=== PATIENT | female | born 1945 | race Caucasian/White ===

== ENCOUNTER → 2016-04-24 | Outpatient (CLI) | payer BC ==
[~2016-04-24] MED LIST: ATEN-173 PO; ATOR-22 PO; BND25X PO; CLC100 PO; FAMO40TA6 PO; MULT-506 PO; VALS160T60 PO
--- NOTE | 2016-04-24 16:37 | MAMMOGRAPHY REPORT ---
BILATERAL DIGITAL SCREENING MAMMOGRAM WITH CAD: 04/24/2016 CLINICAL HISTORY: Routine screening examination. TECHNIQUE: Bilateral CC and MLO views were obtained. Current study was also evaluated with a Compu ter Aided Detection (CAD) system. COMPARISON: Comparison is made to exams dated: 04/21/2015 mammogram, 04/20/2014 mammogram, 04/17/2013 dov mogram, 04/16/2012 mammogram, 03/22/2011 mammogram, and 03/01/2010 mammogram - [facility] nter. BREAST COMPOSITION: The tissue of both breasts is heterogeneously dense, which may obscure small ma sses. FINDINGS: There is a 10 mm asymmetry in the medial, middle one third of the left breast on the CC v iew. It is unclear if this projects superiorly or inferiorly based on the MLO view. Further evalua tion with spot compression tomosynthesis views and possibly ultrasound are recommended. There is a stable circumscribed 5.5 mm mass in the medial posterior left breast that is unchanged ma mmographically dating back to at least 2007, therefore likely benign. There are benign rim calcific ations and scattered bilateral punctate benign-appearing microcalcifications, also stable. No other suspicious mass, architectural distortion or cluster of suspicious microcalcifications is seen. IMPRESSION: ACR BI-RADS CATEGORY 0: INCOMPLETE EVALUATION: NEED ADDITIONAL IMAGING EVALUATION The 10 mm asymmetry in the medial left breast needs additional evaluation. The patient will be called to schedule an appointment. Approximately 10% of breast cancers are not detected with mammography. A negative mammographic repor t should not delay biopsy if a clinically suggestive mass is present. Lori Fuller M.D. ay/:04/24/2016 14:54:24 Casting Molder: Radha JONES)(Yovany), [facility] letter sent: Addl Imaging 0 BI-RADS Code: ACR BI-RADS Category 0: Incomplete Evaluation: Need Additional Imaging Evaluation
== END | disposition home or self-care (01) ==
LOC: C.MAMM 08:39
PROVIDERS: ATTEND Obstetrics & Gynecology
DX: Z12.31 Encounter for screening mammogram for malignant neoplasm of breast (principal); N64.9 Disorder of breast, unspecified

== ENCOUNTER → 2016-05-04 | Outpatient (CLI) | payer BC ==
--- NOTE | 2016-05-04 12:44 | MAMMOGRAPHY REPORT ---
UNILATERAL LEFT DIGITAL DIAGNOSTIC MAMMOGRAM TOMOSYNTHESIS AND TARGETED LEFT ULTRASOUND: 05/04/2016 CLINICAL HISTORY: Callback from screening mammogram for left breast asymmetry. TECHNIQUE: Breast tomosynthesis in addition to standard 2D mammography was performed. Spot jeanne mino left CC and MLO 2-D and tomosynthesis views were obtained. COMPARISON: Comparison is made to exams dated: 04/24/2016 mammogram, 04/21/2015 mammogram, 04/20/2014 ma mmogram, 04/16/2012 mammogram, 04/17/2013 mammogram, and 03/22/2011 mammogram - [facility]. BREAST COMPOSITION: The tissue of the left breast is heterogeneously dense, which may obscure small masses. FINDINGS: The previously described asymmetry seen within the left medial breast on the cc view only effaces to a baseline appearance on the additional views, with appearance of this region similar to prior exams including the 2009 exam. No discrete mammographic mass or other suspicious finding is seen in this region on the tomosynthesis images. Targeted ultrasound was performed of the area of the mammographic asymmetry in the left medial breas t. No suspicious masses or other suspicious sonographic abnormalities are evident, with no sonograp hic correlate for the mammographic asymmetry seen. Incidentally noted during the exam were a few be nign simple cysts, including a 6 x 4 mm simple cyst in the left breast at 7:00, 5 cm from the nipple , as well as a 3 x 2 mm simple cyst in the left breast at 8:00, 2 cm from the nipple. IMPRESSION: ACR BI-RADS CATEGORY 2: BENIGN, TARGETED ULTRASOUND ACR BI-RADS CATEGORY 2: BENIGN The left breast asymmetry effaces on the additional views, without corresponding sonographic abnorma lity evident. The asymmetry is benign and compatible with normal overlapping fibroglandular tissue. There is no mammographic or targeted sonographic evidence of malignancy. A 1 year screening mammogra m is recommended. The patient has been verbally notified of the results. Approximately 10% of breast cancers are not detected with mammography. A negative mammographic repor t should not delay biopsy if a clinically suggestive mass is present. Nicole Hernandez M.D. /:05/04/2016 10:53:39 Fig Caprifier: Radha JNOES)(M), [facility] letter sent: Normal 04/16 BI-RADS Code: ACR BI-RADS Category 2: Benign Ultrasound BI-RADS: ACR BI-RADS Category 2: Benign
== END | disposition home or self-care (01) ==
LOC: C.MAMM 09:36
PROVIDERS: ATTEND Obstetrics & Gynecology
DX: N64.9 Disorder of breast, unspecified (principal)

== ENCOUNTER → 2016-07-31 | Outpatient (CLI) | payer BC ==
[~2016-07-31] MED LIST changes: -BND25X PO; +DIPH25CA50 PO
== END | disposition home or self-care (01) ==
LOC: C.LABSPEC 13:28
PROVIDERS: ATTEND Physician Assistant
DX: N90.7 Vulvar cyst (principal)

== ENCOUNTER → 2016-11-09 | Outpatient (CLI) | payer BC ==
[~2016-11-09] MED LIST changes: +BND25X PO; -DIPH25CA50 PO
[2016-11-09 11:15] LABS: ALT/SGPT 43 U/L (12-78); BLOOD UREA NITROGEN 14 mg/dl (7-18); BUN/CREATININE RATIO 18.7 (10-20); CALCIUM 9.1 mg/dl (8.5-10.1); CARBON DIOXIDE 31 mmol/L (21-32); CHLORIDE 106 mmol/L (98-107); CHOLESTEROL 163 mg/dl (0-200); CREATININE 0.75 mg/dl (0.60-1.20); GLUCOSE 107 mg/dl (70-99); POTASSIUM 4.4 mmol/L (3.5-5.1); SODIUM 143 mmol/L (136-145); TRIGLYCERIDES 165 mg/dl (0-150); VERY LOW DENSITY LIPOPROT CALC 33 mg/dl
[2016-11-09 11:24] LABS: ALKALINE PHOSPHATASE 70 U/L (45-117); AST/SGOT 23 U/L (15-37); CHOLESTEROL/HDL RATIO 3.3; HDL CHOLESTEROL 50 mg/dl; LDL CHOLESTEROL CALCULATED 80 mg/dl
[2016-11-09 12:59] LABS: ESTIMATED AVERAGE GLUCOSE 120 mg/dl; HA1C FLAG Normal (Normal)
== END | disposition home or self-care (01) ==
LOC: C.LABBC 07:36
PROVIDERS: ATTEND Internal Medicine Geriatric Medicine
DX: I10 Essential (primary) hypertension (principal); E78.5 Hyperlipidemia, unspecified; N13.30 Unspecified hydronephrosis; R73.9 Hyperglycemia, unspecified

== ENCOUNTER → 2017-04-26 | Outpatient (CLI) | payer BC ==
[~2017-04-26] MED LIST changes: -BND25X PO; +DIPH25CA50 PO
--- NOTE | 2017-04-29 14:47 | MAMMOGRAPHY REPORT ---
BILATERAL DIGITAL SCREENING MAMMOGRAM TOMOSYNTHESIS WITH CAD: 04/26/2017 CLINICAL HISTORY: Routine screening. TECHNIQUE: Breast tomosynthesis in addition to standard 2D mammography was performed. Current study was also evaluated with a Computer Aided Detection (CAD) system. COMPARISON: Comparison is made to exams dated: 05/04/2016 mammogram, 04/24/2016 mammogram, 04/21/2015 ma mmogram, 04/20/2014 mammogram, 04/17/2013 mammogram, and 04/16/2012 mammogram - [facility] BREAST COMPOSITION: The tissue of both breasts is heterogeneously dense, which may obscure small mas ses. FINDINGS: No suspicious masses, calcifications, or areas of architectural distortion are noted in ei ther breast. There has been no significant interval change compared to prior exams. Bilateral benign -appearing masses/asymmetries and scattered bilateral benign-appearing calcifications are not signifi cantly changed. IMPRESSION: ACR BI-RADS CATEGORY 2: BENIGN There is no mammographic evidence of malignancy. A 1 year screening mammogram is recommended. The pa tient will receive written notification of the results. Approximately 10% of breast cancers are not detected with mammography. A negative mammographic report should not delay biopsy if a clinically suggestive mass is present. Nicole Hernandez M.D. ah/:04/26/2017 14:55:06 Cryptoanalysis Teacher: Urbano JONES)(M), [facility] letter sent: Normal 1/2 BI-RADS Code: ACR BI-RADS Category 2: Benign
== END | disposition home or self-care (01) ==
LOC: C.MAMM 08:37
PROVIDERS: ATTEND Obstetrics & Gynecology
DX: Z12.31 Encounter for screening mammogram for malignant neoplasm of breast (principal)

== ENCOUNTER → 2017-07-04 | Outpatient (CLI) | payer BC ==
--- NOTE | 2017-07-04 09:35 | DIAGNOSTIC IMAGING REPORT ---
CHEST 2 VIEWS ROUTINE CLINICAL HISTORY: R05 [id number] COMPARISON STUDY: 09/08/2014 FINDINGS: The heart is borderline enlarged. There is an air-containing retrocardiac opacity consistent with a hiatal hernia. There is no failure. There is no focal pulmonary consolidation. There are no pleural effusions.[ IMPRESSION: Hiatal hernia. No active disease in the chest. Electronically signed by: Pérez Alegria M.D. 07/04/2017 9:33 AM Dictated Date/Time: 07/04/2017 9:33 AM
== END | disposition home or self-care (01) ==
LOC: C.RADBC 09:16
PROVIDERS: ATTEND Internal Medicine Geriatric Medicine
DX: R05 Cough (principal); K44.9 Diaphragmatic hernia without obstruction or gangrene

== ENCOUNTER 2023-11-04 05:01 | Observation (INO) ==
--- NOTE | 2023-07-11 10:54 | PAT Medication Instructions ---
Medication Instructions Date of Service July 11, 2023 Home Medications multivitamin 1 tab PO QAM omega-3 fatty acids-fish oil 360 mg-1,200 mg capsule (Fish Oil) 1 cap PO QDL meloxicam 7.5 mg tablet 7.5 mg PO 5XWK escitalopram oxalate 20 mg tablet (Lexapro) 20 mg PO QAM valsartan 320 mg-hydrochlorothiazide 25 mg tablet 1 tab PO QAM famotidine 40 mg tablet (Pepcid) 40 mg PO BID atorvastatin 20 mg tablet 20 mg PO QPM diphenhydramine HCl 25 mg tablet (Benadryl Allergy) 12.5 - 25 mg PO HS PRN dihydroxyaluminum sodium carb 334 mg chewable tablet 334 mg PO HS PRN melatonin 5 mg tablet 5 mg PO HS PRN peg 400-propylene glycol (PF) 0.4 %-0.3 % eye drops in a dropperette (Systane (PF)) 1 drp ophthalmic (eye) BID PRN ASK your surgeon for instructions meloxicam 7.5 mg tablet 7.5 mg PO 5XWK STOP taking 2 weeks before surgery (or as soon as possible if surgery is within 2 weeks) omega-3 fatty acids-fish oil 360 mg-1,200 mg capsule (Fish Oil) 1 cap PO QDL DO NOT take the morning of surgery multivitamin 1 tab PO QAM valsartan 320 mg-hydrochlorothiazide 25 mg tablet 1 tab PO QAM Take morning of surgery With a small sip of water, OTHERWISE NOTHING TO EAT OR DRINK AFTER MIDNIGHT: escitalopram oxalate 20 mg tablet (Lexapro) 20 mg PO QAM famotidine 40 mg tablet (Pepcid) 40 mg PO BID peg 400-propylene glycol (PF) 0.4 %-0.3 % eye drops in a dropperette (Systane (PF)) 1 drp ophthalmic (eye) BID PRN(if needed) Take evening before surgery famotidine 40 mg tablet (Pepcid) 40 mg PO BID atorvastatin 20 mg tablet 20 mg PO QPM diphenhydramine HCl 25 mg tablet (Benadryl Allergy) 12.5 - 25 mg PO HS PRN(if needed) dihydroxyaluminum sodium carb 334 mg chewable tablet 334 mg PO HS PRN(if needed) melatonin 5 mg tablet 5 mg PO HS PRN(if needed) peg 400-propylene glycol (PF) 0.4 %-0.3 % eye drops in a dropperette (Systane (PF)) 1 drp ophthalmic (eye) BID PRN(if needed) Other Notes If you have any questions please call us at [phone] or [phone] or [phone] or [phone]
--- NOTE | 2023-07-15 11:04 | Anesthesiology Consultation ---
Date of Service July 15, 2023 Assessment & Plan (1) Encounter for pre-operative examination: Chart Review Chart Review: Patient seen in Pre Admission Testing - Infectious disease screening: Per assessment on 07/15/23: No known infectious disease contacts or current infectious disease symptoms. No noted recent Covid positive test result. - Abnormal stress test (05/2023): Per report, "mild fixed distal lateral MPI defect. There is an additional mild to moderate reversible MPI defect involving the distal inferior, distal inferoseptal, and apical myocardium. These findings suggest small infarct and moderate myocardial ischemia. Alternatively, the reversible defect may represent the patient's known large hiatal hernia with stomach herniated into the intrathoracic space as identified on CT scan.. Unclear if abnormal findings represent myocardial ischemia or large sliding hiatal hernia. Would consider definitive evaluation by coronary angiography." Cardiology visit (07/12/23): "Orthopedic surgery is considered intermediate cardiovascular risk. The patient does not have anginal type symptoms. Her chest pain is persistent and does not change with exertion. She also has a large hiatal hernia based on imaging. Most likely the abnormality on stress testing is secondary to the hiatal hernia. However, we cannot exclude myocardial ischemia particularly given her risk factors. Therefore I have recommended that she undergo coronary angiography for definitive evaluation plus or minus PCI as indicated. If she does require PCI this will delay her orthopedic surgery. Further recommendations pending results of cardiac catheterization" - Per cardiology workload message 07/22/23, "insurance wants her to have a Coronary CTA done before they will approve the Cath." > Insurance recommendations reviewed by cardio. Plan to schedule Coronary CTA- Awaiting results + final cardiology preop recommendations ([facility]). Teaching & Discussion Pre-Anesthesia Teaching/Discussion Notes: Instructed NPO after midnight before surgery,except medications with 15 cc of water. Medication instructions provided according to the PAT guidelines. History Surgery Operation Date: 08/01/23 07:15 Proposed Procedures p Right Hip Endoscopic Bursectomy, - Alok Handley MD s Open Gluteus Medius Repair - Alok Handley MD Height/Weight Height: 5 ft 5 in Weight: 73.8 kg Allergies Allergy/AdvReac Type Severity Reaction Status Date / Time Bactrim Allergy Unknown UNKNOWN Verified 04/29/23 07:51 pollen extracts Allergy Unknown Seasonal Verified 07/17/23 09:28 allergy sulfamethoxazole AdvReac Intermediate Nausea Verified 07/12/23 15:26 trimethoprim AdvReac Unknown Nausea Verified 07/12/23 15:26 Medications Home Medications Medication Instructions Recorded Confirmed Last Taken multivitamin 1 tab PO QAM 12/04/18 07/12/23 Unknown omega-3 fatty acids-fish oil 360 1 cap PO QDL 12/09/18 07/12/23 Unknown mg-1,200 mg capsule (Fish Oil) meloxicam 7.5 mg tablet 7.5 mg PO 5XWK 08/27/19 07/12/23 Unknown escitalopram oxalate 20 mg tablet 20 mg PO QAM 09/13/20 07/12/23 Unknown (Lexapro) valsartan 320 1 tab PO QAM 09/13/20 07/12/23 Unknown mg-hydrochlorothiazide 25 mg tablet atorvastatin 20 mg tablet 20 mg PO QPM 04/29/23 07/12/23 04/28/23 diphenhydramine HCl 25 mg tablet 12.5 - 25 mg PO HS PRN Sleep 04/29/23 07/12/23 Unknown (Benadryl Allergy) melatonin 5 mg tablet 5 mg PO HS PRN Sleep 07/02/23 07/12/23 Unknown peg 400-propylene glycol (PF) 0.4 1 drp ophthalmic (eye) BID PRN Dry 07/02/23 07/12/23 Unknown %-0.3 % eye drops in a dropperette Eye(S) (Systane (PF)) calcium carbonate 750 mg PO DAILY PRN 07/12/23 07/12/23 Unknown omeprazole 40 mg capsule,delayed 40 mg PO DAILY 07/12/23 07/12/23 Unknown release omeprazole 40 mg capsule,delayed 40 mg PO DAILY 07/15/23 07/15/23 Unknown release Past Medical History Medical History Anxiety GERD (gastroesophageal reflux disease) Hiatal hernia Large History of endometriosis HLD (hyperlipidemia) HTN (hypertension) Mitral valve prolapse Osteoarthritis Paroxysmal atrial tachycardia Exercise / Class Metabolic Activity II 4-5 Yardwork/Stairs/Walk up hill (one FS: No CP, no SOB) Past Family History Family History Father Coronary heart disease Heart disease Brother Diabetes Hypertension Mother Diabetes Hypertension Dyslipidemia Denies family history of Ovarian cancer Breast cancer Colorectal cancer Past Surgical History Surgical History H/O colonoscopy H/O foot surgery Right H/O LEEP H/O oral surgery History of arthroscopy of left knee History of bladder repair surgery History of colonoscopy History of esophagogastroduodenoscopy (EGD) History of tonsillectomy and adenoidectomy History of total abdominal hysterectomy and bilateral salpingo-oophorectomy History of ureter repair S/P rotator cuff repair Right Past Anesthesia History No Hx of Anesthesia Complications and No Family Hx of Anesthesia Complications History of PONV No Hx of PONV and No Hx of Motion Sickness Social History Smoking Status: Never smoker Do You Dip or Chew Tobacco: No Hx Alcohol Use: Yes alcohol intake frequency: a few times a week Hx Substance Use: No substance use type: does not use Review of Systems Patient denies shortness of breath, dyspnea on exertion, fever, chills, cough, wheezing, palpitations. Physical Exam Vital Signs BP 111/69 P 71 TEMP 97.8 SP02 97%RA RESP 18 Physical Full cervical extension range of motion. Full TMJ range of motion. TMD 4 finger breaths Mallampati Score 3 Dentition: intact, + crowns, upper right front root canal + implant Lungs: clear throughout to auscultation Cardiac: regular rate and rhythm, no murmurs noted Spine: normal Carotid arteries: negative bruit Extremities: no LE edema Lab Results Anesthesia Preop Results Results Anesthesia Widget: WBC 9.28 K/ul (4.8-10.8) 07/15/23 Hgb 13.9 g/dl (12.0-16.0) 07/15/23 Hct 40.4 % (37.0-47.0) 07/15/23 Plt 262 K/uL (130-400) 07/15/23 Testing Laboratory Results 06/15/23 SODIUM 141 POTASSIUM 3.9 CHLORIDE 109 CO2 30 BUN 16 CREATININE 0.66 GLUCOSE 118 HGBA1C 5.7% Electrocardiogram Date: 04/01/23 Normal sinus rhythm at 79 bpm. Inferior infarct, age undetermined. Possible anterior lateral infarct (poor R wave progression; consider prior anterior lateral NM, LVH, lead placement) *Subsequent Echo/stress test* Echocardiogram Date: 05/02/23 EF 55-60%. No regional wall motion abnormality. Mild concentric LVH. Grade 1 diastolic dysfunction.Mild RAD. Mild TR.Possible descending aortic enlargement/aneurysm. Cannot exclude aortic dissection. Consider definitive evaluation by chest CTA. Mild LVH with grade 1 diastolic dysfunction. Possible aortic pathology but study is very limited. Recommend chest CTA. Chest CTA Date: 06/07/23 1. Normal caliber thoracic aorta. No thoracic aortic dissection. Mild atherosclerotic plaque within the thoracic aorta. 2. No acute intrathoracic findings. 3. Large hiatal hernia with partially intrathoracic stomach. Stress Test Date: 06/07/23 Type: nuclear Baseline EKG demonstrated normal sinus rhythm and late R wave progression. There were no diagnostic ST segment or T wave changes with Lexiscan infusion. No Lexiscan induced arrhythmias. Gated myocardial perfusion imaging demonstrates normal size LV with calculated EF of 80%. There is normal wall motion. There is a mild fixed distal lateral MPI defect. There is an additional mild to moderate reversible MPI defect involving the distal inferior, distal inferoseptal, and apical myocardium. These findings suggest small infarct and moderate myocardial ischemia. Alternatively, the reversible defect may represent the patient's known large hiatal hernia with stomach herniated into the intrathoracic space as identified on CT scan. Study is severely abnormal. Unclear if abnormal findings represent myocardial ischemia or large sliding hiatal hernia. Would consider definitive evaluation by coronary angiography. No prior studies for comparison. 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 Rare PVCs. No pairs, grouped beating, or NSVT. Max HR 109 bpm. Minimum HR 54 bpm. No pauses greater than 2 seconds or high- grade AV block. Patient reported 4 episodes of chest pain, palpitations and pounding in the chestall of these correlated to normal sinus rhythm.
--- OUTSIDE RECORDS SUMMARY | 2023-11-04 05:06 | External Medical Summary | Continuity of Care Document ---
Author Name Unknown Organization [address] Address [address] [place] [id number] Care Team Providers Care Merchandise Pickup/Receiving Associate Name Role Phone Kasey Meyer Primary Care Physician [phone] [facility]counter [id number] Date(s): 10/21/23 - 10/21/[address] [facility] [address] [facility], [address] [place] [address] [place] [phone] Encounter Diagnosis Pneumonia(Discharge Diagnosis) - 10/21/23 Pre-op exam(Discharge Diagnosis) - 10/21/23 Discharge Disposition: Home or Self Care Attending Physician: REBECCA Traylor Katy Marie Referring Physician: REBECCA Meyer Shari A Allergies, Adverse Reactions, Alerts Substance Criticality Severity Reaction Reaction Severity Status Bactrim "very queasy" Active Allergy Not found in Search 1 hayfever, sinus drainage, sneezing Active 1Hay fever Assessment and Plan Extracted from: Title:Office Visit Note Author:REBECCA Traylor Kat y Marie Date:10/21/23 1.Pneumonia Problem isAcute Goal:resolution/resolved Data:_ Plan:completing antibiotics now. LS are clear and cough has subsided. 2.Pre-op exam Plan: There are no major contraindications to surgery. Though we did discuss that given a recent pneumonia she could be at higher risk. Encouraged deep breathing exercises and increasing activity over the next 2 weeks. ARISCAT risk = 20 which is low pulmonary risk. She had an appt with cardiology to eval her cardiac risk. Patient verbalizes understanding and agrees with reggie well asreturn precautions. Immunizations Given and Recorded Vaccine Date Status Refusal Reason SARS-CoV-2 (COVID-19) mRNA-vacc - [id number] 09/10/23 Recorded SARS-CoV-2 (COVID-19) mRNA-vacc - [id number] 04/17/23 Recorded SARS-CoV-2 mRNA (Pfizer 12+) bivalent 01/01/22 Rec orded SARS-CoV-2 (COVID-19) mRNA-1273 vaccine 1 08/02/21 Recorded SARS-CoV-2 (COVID-19) mRNA-1273 vaccine 2 03/01/21 Recorded SARS-CoV-2 (COVID-19) mRNA-1273 vaccine 3 06/10/20 Recorded SARS-CoV-2 (COVID-19) mRNA-1273 vaccine 4 05/13/20 Recorded tetanus/diphtheria/pertuss, acel (Tdap) 02/24/21 G iven tetanus/diphtheria/pertuss, acel (Tdap) 03/26/11 R ecorded influenza virus vaccine, inactivated 12/30/20 Hugh rded influenza virus vaccine, inactivated 01/04/20 Give n pneumococcal 23-valent vaccine 12/16/19 Given zoster vaccine, inactivated 03/16/18 Recorded zoster vaccine, inactivated 5 01/17/18 Recorded zoster vaccine, inactivated 01/14/18 Recorded influenza virus vaccine, H1N1 12/24/17 Recorded pneumococcal 13-valent vaccine 6 04/21/15 Recorded pneumococcal 13-valent vaccine 10/06/13 Recorded zoster vaccine live 7 10/06/13 Recorded 1Result Comment: 2021-10-12: Historical information-source unspecified 2Result Comment: 2021-10-12: Historical information-source unspecified 3Result Comment: 2020-08-11: Historical information-source unspecified 4Result Comment: 2020-08-11: Historical information-source unspecified 5Result Comment: 2020-08-11: Historical information-source unspecified 6Result Comment: 2020-08-11: Historical information-source unspecified 7Result Comment: [07/17/2018 Uncharted] wrong date Medications Albuterol (Eqv-ProAir HFA) 90 mcg/inh inhalation aerosol Start: 10/14/23 11:50:00 AM EDT, 2 puff, inhaled, q6h, Disp# 6.7 g, Pharmacy: [facility]/pharmacy #[id number] Start Date: 10/14/23 Status: Ordered atorvastatin 20 mg oral tablet Start: 05/06/23 1:30:00 PM EST, 1 tab, PO, qhs, Disp# 90 tab, Refills: 2, Pharmacy: [facility] [id number] Start Date: 05/06/23 Status: Ordered Augmentin 875 mg-125 mg oral tablet Start: 10/14/23 11:49:00 AM EDT, amoxicillin 1 tab, PO, q12h, Disp# 20, [id number] Start Date: 10/14/23 Stop Date: 10/24/23 Status: Ordered diphenhydrAMINE Start: 08/10/19 8:38:00 AM EDT, 1 mg = Start Date: 08/10/19 Status: Ordered escitalopram 20 mg oral tablet Start: 04/25/23 3:57:00 PM EST, 1 tab, PO, Daily, Disp# 90 tab, Refills: 3, Pharmacy: [facility] #[id number] Start Date: 04/25/23 Status: Ordered famotidine 40 mg oral tablet Start: 09/14/22 9:16:00 AM EDT, See Instructions, Disp# 180 tab, Refills: 3, TAKE 1 TABLET BY MOUTH TWICE A DAY, Pharmacy: [facility] [id number] Start Date: 09/14/22 Status: Ordered Fish Oil oral capsule Start: 12/20/16 8:03:00 AM EDT, 2-1200mg daily Start Date: 12/20/16 Status: Ordered hydrochlorothiazide-valsartan 25 mg-320 mg oral tablet Start: 05/07/23 11:58:00 AM EST, 1 tab, PO, Daily, Disp# 90 tab, Refills: 2, Pharmacy: [facility] [id number] Start Date: 05/07/23 Status: Ordered inhaler spacer Start: 10/14/23 3:13:00 PM EDT, See Instructions, Disp# 1 each, Refills: 0, for inhaler, Pharmacy: [facility]/pharmacy #[id number] Start Date: 10/14/23 Status: Ordered melatonin Start: 08/10/19 8:36:00 AM EDT, 3 mg =, PO, qhs Start Date: 08/10/19 Status: Ordered meloxicam 7.5 mg oral tablet Start: 09/14/22 9:16:00 AM EDT, See Instructions, Disp# 180 tab, Refills: 0, TAKE 1 TABLET BY MOUTH BEFORE BREAKFAST AND 1 TABLET BEFORE LAST MEAL OF THE DAY, Pharmacy: [facility] [id number] Start Date: 09/14/22 Status: Ordered Multiple Vitamins oral tablet Start: 10/03/10 3:21:00 PM EDT, 1 tab, PO, Daily Start Date: 10/03/10 Status: Ordered sodium fluoride 5% topical varnish Start: 04/18/18 8:46:00 AM EST Start Date: 04/18/18 Status: Ordered Systane Complete Optimal Dry Eye Relief Start: 12/11/22 10:29:00 AM EDT Start Date: 12/11/22 Status: Ordered Tums Start: 10/14/23 11:33:00 AM EDT Start Date: 10/14/23 Status: Ordered Mental Status 10/21/23 Barriers to Learning one year None evide nt Mandatory Health Literacy Documentation Yes Health Literacy Communication Barriers N ever Primary Language Khmer Problem List Condition Confirmation Course Effective Dates Status H ealth Status Informant ACTINIC KERATOSIS Confirmed Active Arthritis Confirmed Active Multiple nevi Confirmed Active Brachioradial pruritus Confirmed Active Blackhead Confirmed Active Elevated cholesterol Confirmed Active Hamstring injury Confirmed Active History of actinic keratoses Confirmed Active Hypertension Confirmed Active Inflamed seborrheic keratosis Confirmed Active Lip lesion Confirmed Active Milia Confirmed Active 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 Confirmed Active Knee osteoarthritis Confirmed Active Leg pain Confirmed Active Patellofemoral syndrome Confirmed Active Well adult exam Confirmed Active Reflux Confirmed Active Seborrhea Confirmed Active Seborrheic keratosis Confirmed Active Seborrheic keratoses Confirmed Active Common wart Confirmed Active Diagnosis Diagnosis Type Effective Dates Health Status Clini na Service Informant Pneumonia Discharge Diagnosis 10/21/23 Non-Specified Pre-op exam Discharge Diagnosis 10/21/23 Non-Specified Procedures Procedure Date Related Diagnosis Body Site Status Mammogram 1 04/30/19 Completed Colonoscopy 2 04/01/19 Completed DEXA (dual energy X-ray phot on absorptiometry) scan of lateral spine 3 07/24/18 Completed Mammogram 4 04/29/18 Completed Fistula 5 08/02/17 Completed Ureter reconstruction 6 09/2014 C ompleted Arthroscopy Completed Hysterectomy Completed greenwood's neuroma removal Completed Procedure 7 Completed Rotator cuff repair Compl eted Tonsillectomy Completed 1IMPRESSION: ACR BI-RADS CATEGORY 1: NEGATIVE There is no mammographic evidence of malignancy. A one year screening is recommended. 2One 7mm polyp at the splenic flexure, removed with a hot snare. Resected and retrieved. One 6mm polyp in the proximal transverse colon, removed with a cold snare. Resected and retrieved. Await pathology results 3Femur Neck Left is 0.870 with a T-score of -1.2 Femur Neck Right is 1.035 with a T-score of 0.0 Femur Total Mean is 0.987 with a T-score of -0.2 Forearm Radius 33% is 0.701 with a T-score of -0.2 Z-score of 0.5, this patient's BMD is considered within normal limits relative to their age. Even so, they may be considered osteopenic or osteoporotic, which is normal for this age. 4wnl 5rectal 6right 7blocked duct in mouth Vital Signs Most recent to oldest [Reference Range]: 1 Temperature [36.5-37.9 DegC] 36.7 DegC (10/21/23 4:25 PM) Blood Pressure 120/60mmHg (10/21/23 4:25 PM) Cuff Pulse Pressure 60 mmHg (10/21/23 4:25 PM) Social History Social History Type Response Smoking Status Never smoked cigaret genaro Sex Female FCM Outpt Note * REBECCA Traylor, Sarah Herrera: PERFORM Event Display: FCM Outpt Note Authored Date: Chief Complaint Pt is here for 1 week f/u after pnuemonia. States feeling much better History of Present Illness Had PNA last week. Now feeling much better. Having surgery in 2 weeks. I have been consulted by Dr. Handley to evaluate this patient for a pre-operative exam. The procedure muscle repairis schedule for November 04. We discussed the risks and benefits of surgery, patient has voiced understanding. After careful consideration and examination there are no major contraindications for surgery and this patient is understanding of the risks associated with surgery. [facility] Cardiovascular Risk Factors: - Evaluated by Dr. Keith on 10/14 Blood Thinners: none Prior Anesthesia Reactions: none Alcohol use: socially 1-2/week Tobacco use: no Substance use: no Review of Systems A total of 10 systems were reviewed. Pertinent positive and negatives addressed in HPI, all other findings are negative. Physical Exam Vitals & Measurements T:36.7C BP:120/60 SpO2:96% PHQ2 Data(Data Documented on:10/21/2023 16:24) Emotional health assessment NEGATIVE Constitutional: Alert and oriented, No acute distress, Well-appearing, Normal mood and affect Respiratory: Lung sounds are clear, equal chest rise and fall with breathing, no pursed lip breathing Cardiovascular: Heart sounds regular rate and rhythm, without gallop or murmur, no edema HEENT: Normocephalic, atraumatic, conjunctiva are clear, sclera non-icteric, EOM intact, Ear canalsclear, TM pearly sanches and mobile, hearing intact, Mucous membranes are moist, No tonsillar exudate,neck is supple without lymphadenopathy, thyroid is mobile without palpable masses Gastrointestinal: abdomen is soft and non-tender to palpation, normoactive BS, no organomegaly/masses/hernia Musculoskeletal: No weakness, normal gait, no atrophy or abnormal muscle tone Neurological: CN 2-12 grossly intact, sensation intact, DTRs normal reactions Skin: Warm, pink, dry, intact Assessment/Plan 1.Pneumonia Problem isAcute Goal:resolution/resolved Data:_ Plan:completing antibiotics now. LS are clear and cough has subsided. 2.Pre-op exam Plan: There are no major contraindications to surgery. Though we did discuss that given a recent pneumonia she could be at higher risk. Encouraged deep breathing exercises and increasing activity over the next 2 weeks. ARISCAT risk = 20 which is low pulmonary risk. She had an appt with cardiology to eval her cardiac risk. Patient verbalizes understanding and agrees with reggie well asreturn precautions. Attestation I attest that I have spent45 minutes in care and coordination of this patient. 10min previsit: chart review and preparation 30min [id number]-gh-[id number]: obtaining HPI, PE, discussing Assessment and Plan, and other pertinent discussions/decisionsr/t care 5min postvisit: coordination of care, orders, and documentation/paperwork Problem List/Past Medical History Ongoing ACTINIC KERATOSIS Arthritis Blackhead Brachioradial pruritus Common wart Elevated cholesterol Hamstring injury History of actinic keratoses Hypertension Inflamed seborrheic keratosis Knee osteoarthritis Leg pain Lip lesion Milia Mucocele of lip Multiple nevi Notalgia paresthetica Patellofemoral syndrome Reflux Seborrhea Seborrheic keratoses Seborrheic keratosis Well adult exam Procedure/Surgical History Mammogram| Service Date: 04/30/2019Colonoscopy| Service Date: 04/01/2019DEXA (dual energy X-ray photon absorptiometry) scan of lateral spine| Service Date: 07/24/2018Mammogram| Service Date: 04/29/2018Fistula| Service Date: 08/02/2017Ureter reconstruction| Service Date: 09/2014m jessy's neuroma removalRotator cuff repairArthroscopyHysterectomyTonsillectomyProcedure Medications albuterol(Albuterol (Eqv-ProAir HFA) 90 mcg/inh inhalation aerosol), 2 puff, inhaled, q6h amoxicillin-clavulanate(Augmentin 875 mg-125 mg oral tablet), 1 tab, PO, q12h atorvastatin(atorvastatin 20 mg oral tablet), 1 tab, PO, qhs calcium carbonate(Tums) diphenhydrAMINE, 1 mg escitalopram(escitalopram 20 mg oral tablet), 1 tab, PO, Daily, 3 refills famotidine(famotidine 40 mg oral tablet), See Instructions fluoride topical(sodium fluoride 5% topical varnish) hydrochlorothiazide-valsartan(hydrochlorothiazide-valsartan 25 mg-320 mg oral tablet), 1 tab, PO, Daily inhalation accessory(inhaler spacer), See Instructions melatonin, 3 mg, PO, qhs meloxicam(meloxicam 7.5 mg oral tablet), See Instructions multivitamin(Multiple Vitamins oral tablet), 1 tab, PO, Daily ocular lubricant(Systane Complete Optimal Dry Eye Relief) omega-3 polyunsaturated fatty acids(Fish Oil oral capsule) Allergies Allergy Not found in Searchhayfever, sinus drainage, sneezing Bactrim"very queasy" Social History Smoking Status Never smoked cigarettes Alcohol Frequency:Daily - Comments: one beverage daily Exercise Exercise type:Walking - Comments: daily, 10 min Nutrition/Health Diet description:healthy Substance Abuse - Denies Substance Abuse Tobacco - Denies Tobacco Use Family History Diabetes insipidus: Mother and Brother. Heart attack: MGF and PGF. Hypertension: Mother, Sister and Brother. Stroke: MGM and PGM. Health Status Family Member(s) Immunizations Vaccine Date Status SARS-CoV-2 (COVID-19) mRNA-vacc - [id number] 09/10/2023 Recorded SARS-CoV-2 (COVID-19) mRNA-vacc - [id number] 04/17/2023 Recorded SARS-CoV-2 mRNA (Pfizer 12+) bivalent 01/01/2022 Recorded SARS-CoV-2 (COVID-19) mRNA-1273 vaccine 08/02/2021 Recorded Comments : 2021-10-12: Historical information-source unspecified SARS-CoV-2 (COVID-19) mRNA-1273 vaccine 03/01/2021 Recorded Comments : 2021-10-12: Historical information-source unspecified tetanus/diphtheria/pertuss, acel (Tdap) 02/24/2021 Given influenza virus vaccine, inactivated 12/30/2020 Recorded SARS-CoV-2 (COVID-19) mRNA-1273 vaccine 06/10/2020 Recorded Comments : 2020-08-11: Historical information-source unspecified SARS-CoV-2 (COVID-19) mRNA-1273 vaccine 05/13/2020 Recorded Comments : 2020-08-11: Historical information-source unspecified influenza virus vaccine, inactivated 01/04/2020 Given pneumococcal 23-valent vaccine 12/16/2019 Given zoster vaccine, inactivated 03/16/2018 Recorded zoster vaccine, inactivated 01/17/2018 Recorded Comments : 2020-08-11: Historical information-source unspecified zoster vaccine, inactivated 01/14/2018 Recorded influenza virus vaccine, H1N1 12/24/2017 Recorded pneumococcal 13-valent vaccine 04/21/2015 Recorded Comments : 2020-08-11: Historical information-source unspecified pneumococcal 13-valent vaccine 10/06/2013 Recorded tetanus/diphtheria/pertuss, acel (Tdap) 03/26/2011 Recorded Recommendations Health Maintenance Pending(in the next year) OverDue Medicare Annual Wellness Visit due10/16/22and every 1year Due Adult Influenza Vaccine due10/13/23and every 1year Adult Social Determinants of Health Screening due10/21/23Unknown Frequency Due In Future Body Mass Index not due until10/14/24and every day Satisfied(in the past 1 year) Satisfied Body Mass Index on10/14/23.Satisfied by SMITA Kaur Lori Lipid Screening on07/04/23.Satisfied by Contributor_system, [email or web address] Electronic Signature on File CC: Kathi Marie, DO [address] [place] [id number] Electronically Reviewed/Signed by: REBECCA Michael Author Signature Dt/Tm:10/21/2023 05:19 PM Department of Family Medicine [facility] Patient Care team information Care Team Personnel Name: REBECCA Meyer Shari A Position: Nurse Pract - Family Med Member Role: Primary Care Provider Address: Address: [address] [place] [address], [place] [address] Care Team Related Persons Name: MITRA BENNETT Address: home [address], [place] [id number]
--- OUTSIDE RECORDS SUMMARY | 2023-11-04 05:06 | External Medical Summary | Summary of Care ---
Author Name Unknown Organization [facility] Address [address] [place] [address] Phone [phone] Care Team Providers Care Call Worker Name Role Phone Kasey Meyre Primary Care Provider Reason for Visit * Reason Onset Date Comments Appointment 07/26/2023 CT Cardiac Compl ete Encounter Details Date Type Department Care Team (Late st Contact Info) Description 07/26/2023 Telephone Radiology, [facility] [address] [place], [place] [id number] Requisition, External Radiology [address] [place] [address] Appointment (CT Cardiac Complete) Allergies Active Allergy Reactions Criticality Noted Date Comments Sulfamethoxazole-Trimethoprim Nausea/vomiting 0 12/10/2016 documented as of this encounter (statuses as of 10/25/2023) Medications Medication Sig Dispensed Refills Start Date End Date Status famotidine (PEPCID) 40 MG Tablet Take 1 Tablet by mouth in the morning and 1 Tablet before bedtime. 09/24/2016 Active Valsartan-hydroCHLORO thiazide 320-25 MG Oral Tablet Take 1 Tablet by mouth in the morning. 11/07/2016 Active atorvaSTATin (LIPITOR) 20 MG TabletIndications:nacho es at night Take 1 Tablet by mouth in the morning. 11/07/2016 Active celecoxib (CELEBREX) 200 MG Capsule Take 200 mg by mouth as needed. 3 09/12/2016 Active Multiple Vitamins-Minerals (MULTIVITAMIN ADULT) TABS Take by mouth. Active Kinsey-3 Fatty Acids (FISH OIL) 1000 MG Capsule Take 1 Capsule by mouth in the morning. Active Melatonin 1 MG Capsule Take 1 Capsule by mouth at bedtime. Active triamcinolone acetonide (ARISTOCORT) 0.1 % lotion 12/21/2016 Active Escitalopram Oxalate 20 MG Oral Tablet (Lexapro) Take 1 Tablet by mouth in the morning. Active Meloxicam 7.5 MG Oral Tablet (Mobic) Start: 09/14/22 9:16:00 EDT, See Instructions, Disp# 180 tab, Refills: 0, TAKE 1 TABLET BY MOUTH BEFORE BREAKFAST AND 1 TABLET BEFORE LAST MEAL OF THE DAY, Pharmacy: [id number] 09/14/2022 Active diphenhydrAMINE HCl 25 MG Oral Tablet (Benadryl) Take 1 Tablet by mouth every 6 hours as needed for Itching. Active documented as of this encounter (statuses as of 10/25/2023) Active Problems No known active problems documented as of this encounter (statuses as of 10/25/2023) Social History Tobacco Use Types Packs/Day Years Used Date Smoking Tobacco: Never Smokeless Tobacco: Never Alcohol Use Standard Drinks/Week Comments Yes 0 (1 standard drink = 0.6 oz pur e alcohol) Utilities Answer Date Recorded Do you have trouble paying y our heating, water, or electric bill? (Adult - for ages 18 years and over) Not on file 10/01/2023 Is your family able to pay t he heat, water, or electric bill? (Household - for ages 0-17 years) Not on file 10/01/2023 Does your family have access to good internet? (Household - for ages 0-17 years) Not on file 10/01/2023 Social Connections Answer Date Recorded How often do you feel lonely or isolated from those around you? (Adult - for ages 18 years and over) Not on file 10/01/2023 Sex and Gender Information Value Date Recorded Sex Assigned at Not on file Gender Identity Not on file Sexual Orientation Not on file Job Start Date Occupation Industry Not on file Not on file Not on file documented as of this encounter Miscellaneous Notes * Telephone Encounter - Dorie Mera OSA - 07/26/2023 2:54 PM EDT Keyla is scheduled for her CT Cardiac Complete 08/21/2023 8:15am @ [facility]. Thank you. documented in this encounter Plan of Treatment Health Maintenance Due Date Last Done Comments DXA Scan 1945 Depression Screening 1959 Hepatitis C Screening 11/16/1965 DTaP,Tdap,and Td Vaccines (1 - Tdap) 11/16/1966 COVID-19 Vaccine (2 - season) 2022 01/01/2022 Influenza Vaccine (FLU shot) (#1) 2023 12/30/2020 Zoster Vaccines Completed 03/16/2018, 08/2017, 01/14/2018, Additional history exists Pneumococcal Vaccine: 65+ Years Completed 12/16/2019, 04/21/2015, 10/06/2013 HPV (Gardasil) Vaccine Aged Out No lo nger eligible based on patient's age to complete this topic Hepatitis B Vaccine Aged Out No longe r eligible based on patient's age to complete this topic MENINGOCOCCAL (MENACTRA/MENVEO) Aged Out No longer eligible based on patient's age to complete this topic documented as of this encounter Medical Devices Implanted Type Area Naphthol Soaping Machine Operator Device Identifier Shelf Expiration Date Model / Serial / Lot Lens Intraoc 16.5 - [id number] - [id number] Implanted:Qty: 1 on 10/18/2020 by Tomasz Gutierrez MD at [facility] Left: Eye [employer] 06/12/2025 [id number] / [id number] / [id number] Lens Intraoc 17.0 - [id number] - [id number] Implanted:Qty: 1 on 11/01/2020 by Tomasz Gutierrez MD at [facility] Right: Eye [employer] 04/14/2024 [id number] / [id number] / [id number] documented as of this encounter Care Teams Call Worker Relationship Specialty Start Date End Date Kasey Meyer CRNP 6 [facility] [address], [place] [address] PCP - General Nurse Practitioner 04/26/23 documented as of this encounter
--- OUTSIDE RECORDS SUMMARY | 2023-11-04 05:06 | External Medical Summary | Continuity of Care Document ---
Author Name Unknown Organization [address] Address [address] [place] [id number] Care Team Providers Care Handicrafts Teacher Name Role Phone Kasey Meyer Ana Laura Primary Care Physician [phone] [id number] Date(s): 10/14/23 - 10/14/[address], [address] [place] [address] [place] [phone] Encounter Diagnosis Body mass index [BMI] 26.0-26.9, adult(Discharge Diagnosis) - 10/14/23 Community acquired pneumonia(Discharge Diagnosis) - 10/14/23 Discharge Disposition: Home or Self Care Attending Physician: REBECCA Traylor Katy Marie Referring Physician: REBECCA Traylor Katy Marie Allergies, Adverse Reactions, Alerts Substance Criticality Severity Reaction Reaction Severity Status Bactrim "very queasy" Active Allergy Not found in Search 1 hayfever, sinus drainage, sneezing Active 1Hay fever Assessment and Plan Extracted from: Title:Office Visit Note Author:REBECCA Traylor Kat y Marie Date:10/14/23 Community acquired pneumonia Problem isAcute Goal:resolution Data:_ Plan:continue mucinex.Augmentin and Zithromax ordered. Given that she also has wheezing will order albuterol inhaler with spacer. We did discuss how to use an inhaler. We discussed that the cough may linger. However she should improve with the antibiotic therapy. I would liketo see her back in 1 weeks time for recheck Patient verbalizes understanding and agrees with reggie well asreturn precautions. Immunizations Given and Recorded Vaccine Date Status Refusal Reason SARS-CoV-2 (COVID-19) mRNA-vacc - [id number] 09/10/23 Recorded SARS-CoV-2 (COVID-19) mRNA-vacc - [id number] 04/17/23 Recorded SARS-CoV-2 mRNA (Pfizer 12+) bivalent [...] puff, inhaled, q6h, Disp# 6.7 g, Pharmacy: [facility]/pharmacy #[id number] Start Date: 10/14/23 Status: Ordered atorvastatin 20 mg oral tablet Start: 05/06/23 1:30:00 PM EST, 1 tab, PO, qhs, Disp# 90 tab, Refills: 2, Pharmacy: [id number] Start Date: 05/06/23 Status: Ordered Augmentin 875 mg-125 mg oral tablet Start: 10/14/23 11:49:00 AM EDT, amoxicillin 1 tab, PO, q12h, Disp# 20, [id number] Start Date: 10/14/23 Stop Date: 10/24/23 Status: Ordered diphenhydrAMINE Start: 08/10/19 8:38:00 AM EDT, 1 mg = Start Date: 08/10/19 Status: Ordered escitalopram 20 mg oral tablet Start: 04/25/23 3:57:00 PM EST, 1 tab, PO, Daily, Disp# 90 tab, Refills: 3, Pharmacy: [facility] #[id number] Start Date: 04/25/23 Status: Ordered famotidine 40 mg oral tablet Start: 09/14/22 9:16:00 AM EDT, See Instructions, Disp# 180 tab, Refills: 3, TAKE 1 TABLET BY MOUTH TWICE A DAY, Pharmacy: [id number] Start Date: 09/14/22 Status: Ordered Fish Oil oral capsule Start: 12/20/16 8:03:00 AM EDT, 2-1200mg daily Start Date: 12/20/16 Status: Ordered hydrochlorothiazide-valsartan 25 mg-320 mg oral tablet Start: 05/07/23 11:58:00 AM EST, 1 tab, PO, Daily, Disp# 90 tab, Refills: 2, Pharmacy: [id number] Start Date: 05/07/23 Status: Ordered inhaler spacer Start: 10/14/23 3:13:00 PM EDT, See Instructions, Disp# 1 each, Refills: 0, for inhaler, Pharmacy: [facility]/pharmacy #[id number] Start Date: 10/14/23 Status: Ordered melatonin Start: 08/10/19 8:36:00 AM EDT, 3 mg =, PO, qhs Start Date: 08/10/19 Status: Ordered meloxicam 7.5 mg oral tablet Start: 09/14/22 9:16:00 AM EDT, See Instructions, Disp# 180 tab, Refills: 0, TAKE 1 TABLET BY MOUTH BEFORE BREAKFAST AND 1 TABLET BEFORE LAST MEAL OF THE DAY, Pharmacy: [id number] Start Date: 09/14/22 Status: Ordered Multiple Vitamins [...] AM EDT Start Date: 10/14/23 Status: Ordered Zithromax Z-Wilfredo 250 mg oral tablet Start: 10/14/23 11:49:00 AM EDT, See Comments, PO, Daily, Disp# 6 tab, 500 mg (2 tabs) on day 1, [id number] mg (1 tab) on days 2-5, Pharmacy: [facility]/pharmacy #[id number] Start Date: 10/14/23 Status: Ordered Mental Status 10/14/23 Barriers to Learning one year None evide nt Mandatory Health Literacy Documentation Yes Health Literacy Communication Barriers N ever Primary Language Cymraes Problem List Condition Confirmation Course Effective Dates [...] Diagnosis Diagnosis Type Effective Dates Health Status Cl inical Service Informant Community acquired pneumonia Discharge Diagnosis 10/14/23 Non-Specified Body mass index [BMI] 26.0-26.9, adult Discharge Diagnosis 10/14/23 Non-Specified Procedures Procedure Date Related Diagnosis Body [...] Most recent to oldest [Reference Range]: 1 Height 163.5 cm (10/14/23 11:34 AM) Patient Weight 71.7 kg (10/14/23 11:34 AM) Body Mass Index 26.82 kg/m2 (10/14/23 11:34 AM) Temperature [36.5-37.9 DegC] 36.2 DegC *LOW* (10/14/23 11:34 AM) Respiratory Rate 12 br/min (10/14/23 11:34 AM) Blood Pressure 116/54mmHg (10/14/23 11:34 AM) Cuff Pulse Pressure 62 mmHg (10/14/23 11:34 AM) Social History Social History Type Response Smoking Status Never smoked cigaret genaro Sex Female [facility] Outpt Note * REBECCA Traylor Katy Marie: PERFORM Event Display: [facility] Outpt Note Authored Date: [id number] Chief Complaint Cough x 8 days. Nasal sx resolved. COVID test neg today. History of Present Illness Had a cold a few days ago (8 days) now with worsening and productive cough. thick mucus, +fevers, harsh cough head cold sxare resolving. No hx of COPD or Asthma. No head congestion. Review of Systems A total of 10 systems were reviewed. Pertinent positive and negatives addressed in HPI, all other findings are negative. Physical Exam Vitals & Measurements T:36.2C RR:12 BP:116/54 SpO2:96% HT:163.5cm WT:71.7kg WT:71.700kg(Dosing) BMI:26.82 PHQ2 Data(Data Documented on:10/14/2023 11:33) Emotional health assessment NEGATIVE Constitutional: Alert and oriented, No acute distress, Well-appearing, Normal mood and affect Respiratory: Lung sounds are expiratory wheezing in upper lungs and LLL crackles, equal chest rise and fall with breathing, no pursed lip breathing Cardiovascular: Heart sounds regular rate and rhythm, without gallop or murmur, no edema HEENT: Normocephalic, atraumatic, conjunctiva are clear, sclera non-icteric, EOM intact, Ear canalsclear, TM pearly sanches and mobile, hearing intact, Mucous membranes are moist, No tonsillar exudate,neck is supple without lymphadenopathy, thyroid is mobile without palpable masses Assessment/Plan Community acquired pneumonia Problem isAcute Goal:resolution Data:_ Plan:continue mucinex.Augmentin and Zithromax ordered. Given that she also has wheezing will order albuterol inhaler with spacer. We did discuss how to use an inhaler. We discussed that the cough may linger. However she should improve with the antibiotic therapy.I would liketo see her back in 1 weeks time for recheck Patient verbalizes understanding and agrees with reggie well asreturn precautions. Attestation I attest that I have spent25 minutes in care and coordination of this patient. 5min previsit: chart review and preparation _20min [id number]: obtaining HPI, PE, discussing Assessment and Plan, and other pertinent discussions/decisionsr/t care _min postvisit: coordination of care, orders, and documentation/paperwork [...] mg oral tablet), 1 tab, PO, qhs azithromycin(Zithromax Z-Wilfredo 250 mg oral tablet), See Comments, PO, Daily calcium carbonate(Tums) diphenhydrAMINE, 1 mg escitalopram(escitalopram 20 mg oral tablet), 1 tab, PO, Daily, 3 refills famotidine(famotidine 40 mg oral tablet), See Instructions fluoride topical(sodium fluoride 5% topical varnish) hydrochlorothiazide-valsartan(hydrochlorothiazide-valsartan 25 mg-320 mg oral tablet), 1 tab, PO, Daily melatonin, 3 mg, PO, qhs meloxicam(meloxicam 7.5 [...] Vaccine Date Status SARS-CoV-2 (COVID-19) mRNA-vacc - [id number] 09/10/2023 Recorded SARS-CoV-2 (COVID-19) mRNA-vacc - [id number] 04/17/2023 Recorded SARS-CoV-2 mRNA (Pfizer 12+) bivalent [...] 1year Adult Social Determinants of Health Screening due10/14/23Unknown Frequency Satisfied(in the past 1 year) Satisfied Body Mass Index on10/14/23.Satisfied by SMITA Kaur Lori Lipid Screening on07/04/23.Satisfied by Contributor_system, [email or web address] Electronic Signature on File CC: Kathi Marie, [address] [place] [id number] Electronically Reviewed/Signed by: REBECCA Michael Author Signature Dt/Tm:10/14/2023 12:08 PM Department of Family [facility] Patient Care team information Care Team Personnel Name: REBECCA Meyer Shari A Position: Nurse Pract - Family Med Member Role: Primary Care Provider Address: Address: [address] [place] [id number] Care Team Related Persons Name: MITRA BENNETT Address: home [address] [facility], [place] [phone]
--- OUTSIDE RECORDS SUMMARY | 2023-11-04 05:06 | External Medical Summary | Continuity of Care Document ---
Author Name Unknown Organization [facility] [address] [facility] [address] Address [address] [place], [place] [id number] Care Team Providers Care Hand Tennis Ball Coverer Name Role Phone Kasey Meyer Primary Care Physician [phone] [id number] Date(s): 10/15/23 - 10/15/23 [facility] [address] [facility] 303 [facility] [place], [facility] [address] [place], [place] [phone] Encounter Diagnosis Prediabetes(Final) - Discharge Disposition: Home or Self Care Attending Physician: REBECCA Meyer Shari A Referring Physician: REBECCA Meyer Shari A Allergies, Adverse Reactions, Alerts Substance Criticality Severity Reaction Reaction Severity Status Bactrim "very queasy" Active Allergy Not found in Search 1 hayfever, sinus drainage, sneezing Active 1Hay fever Immunizations Given and Recorded Vaccine Date Status Refusal Reason SARS-CoV-2 (COVID-19) mRNA-vacc - [id number] 09/10/23 Recorded SARS-CoV-2 (COVID-19) mRNA-vacc - [id number] 04/17/23 Recorded SARS-CoV-2 mRNA (Pfizer 12+) bivalent [...] puff, inhaled, q6h, Disp# 6.7 g, Pharmacy: [facility]/pharmacy #[id number] Start Date: 10/14/23 Status: Ordered atorvastatin 20 mg oral tablet Start: 05/06/23 1:30:00 PM EST, 1 tab, PO, qhs, Disp# 90 tab, Refills: 2, Pharmacy: [id number] Start Date: 05/06/23 Status: Ordered Augmentin 875 mg-125 mg oral tablet Start: 10/14/23 11:49:00 AM EDT, amoxicillin 1 tab, PO, q12h, Disp# 20, Pharmacy: [facility]/pharmacy #[id number] Start Date: 10/14/23 Stop Date: 10/24/23 Status: Ordered diphenhydrAMINE Start: 08/10/19 8:38:00 AM EDT, 1 mg = Start Date: 08/10/19 Status: Ordered escitalopram 20 mg oral tablet Start: 04/25/23 3:57:00 PM EST, 1 tab, PO, Daily, Disp# 90 tab, Refills: 3, Pharmacy: [facility]/pharmacy #[id number] Start Date: 04/25/23 Status: Ordered famotidine 40 mg oral tablet Start: 09/14/22 9:16:00 AM EDT, See Instructions, Disp# 180 tab, Refills: 3, TAKE 1 TABLET BY MOUTH TWICE A DAY, Pharmacy: [id number] Start Date: 09/14/22 Status: Ordered Fish Oil oral capsule Start: 12/20/16 8:03:00 AM EDT, 2-1200mg daily Start Date: 12/20/16 Status: Ordered hydrochlorothiazide-valsartan 25 mg-320 mg oral tablet Start: 05/07/23 11:58:00 AM EST, 1 tab, PO, Daily, Disp# 90 tab, Refills: 2, Pharmacy: [id number] Start Date: 05/07/23 Status: Ordered inhaler spacer Start: 10/14/23 3:13:00 PM EDT, See Instructions, Disp# 1 each, Refills: 0, for inhaler, [id number] Start Date: 10/14/23 Status: Ordered melatonin Start: 08/10/19 8:36:00 AM EDT, 3 mg =, PO, qhs Start Date: 08/10/19 Status: Ordered meloxicam 7.5 mg oral tablet Start: 09/14/22 9:16:00 AM EDT, See Instructions, Disp# 180 tab, Refills: 0, TAKE 1 TABLET BY MOUTH BEFORE BREAKFAST AND 1 TABLET BEFORE LAST MEAL OF THE DAY, Pharmacy: [id number] Start Date: 09/14/22 Status: Ordered Multiple Vitamins [...] 500 mg (2 tabs) on day 1, [id number] mg (1 tab) on days 2-5, Pharmacy: [facility]acy #[id number] Start Date: 10/14/23 Status: Ordered Problem List Condition Confirmation Course Effective Dates [...] keratoses Confirmed Active Common wart Confirmed Active Procedures Procedure Date Related Diagnosis Body Site [...] 4wnl 5rectal 6right 7blocked duct in mouth Results Laboratory List Name Date Hemoglobin A1C (HEMOGLOBIN, A1C) 10/15/23 Most recent to oldest [Reference Range]: 1 Estimated Average Glucose 123 mg/dL (10/15/23 8:18 AM) HbA1c [<5.7 %] 5.9 % 1 *HI* (10/15/23 8:18 AM) 1Result Comment: ADA Recommended [place] Reference Range: Normal: <5.7% Prediabetes: 5.7-6.4% Diabetes: >6.4% Social History Social History Type Response Smoking Status Never smoked cigaret genaro Sex Female Patient Care team information Care Team Personnel Name: REBECCA Meyer Shari A Position: Nurse Pract - Family Med Member Role: Primary Care Provider Address: Address: [address] [place] [address], [place] [address] Care Team Related Persons Name: MITRA BENNETT Address: home [address] [facility], [place] [id number]
[2023-11-04] MEDS: LR 15ML/HR IV SCH (05:54)
[2023-11-04] MEDS: ACETAMINOPHEN 500 MG TAB PO SCH (05:54)
[2023-11-04] MEDS: LR 60ML/HR IV SCH (05:54)
[2023-11-04] MEDS ORDERED: ePHEDrine sulfate 50 MG/ML AMP IV PRN (06:45)
[2023-11-04] MEDS ORDERED: ONDANSETRON INJ 2 MG/ML 2 ML VIAL IV PRN ×2 (06:45→09:46)
[2023-11-04] MEDS ORDERED: fentaNYL citrate PF 100 MCG/2 ML VIAL IV PRN (06:45)
[2023-11-04] MEDS ORDERED: ATROPINE SULFATE 0.1 MG/ML 10ML SYR IV PRN (06:45)
[2023-11-04] MEDS ORDERED: DEXAMETHASONE SOD INJ 4 MG/ML VIAL ONE (06:46)
[2023-11-04] MEDS ORDERED: fentaNYL citrate PF 100 MCG/2 ML VIAL ONE (06:46)
[2023-11-04] MEDS ORDERED: PROPOFOL IV EMULSION 10 MG/ML 20 ML VIAL IV ONE ×2 (06:46→09:26)
[2023-11-04] MEDS ORDERED: ONDANSETRON INJ 2 MG/ML 2 ML VIAL ONE (06:46)
[2023-11-04] MEDS ORDERED: MIDAZOLAM HCL 1 MG/ML 2ML VIAL ONE (06:46)
[2023-11-04] MEDS ORDERED: LIDOCAINE 2% 2 ML VIAL/AMP(20MG/ML) INFIL ONE (06:46)
[2023-11-04] MEDS ORDERED: ROCURONIUM BROMIDE 10 MG/ML 5 ML VIAL IV ONE (06:46)
[2023-11-04] MEDS: TRANEXAMIC ACID 1,000 MG **IV Pre-op IV SCH (07:07)
--- NOTE | 2023-11-04 07:08 | History & Physical Bridge Note ---
Date of Service November 04, 2023 History & Physical Bridge Note I have examined the patient, reviewed the History & Physical and in the interval since the performance of the History & Physical I have noted the following changes of clinical significance: no changes noted
[2023-11-04] MEDS: ceFAZolin 2000MG 2,000 MG/15 ML SYR IV SCH ×2 (07:14→15:36)
[2023-11-04] MEDS ORDERED: ePHEDrine sulfate 50 MG/5 ML SYR ONE (07:34)
[2023-11-04] MEDS ORDERED: PHENYLEPHRINE 100MCG/ML 10ML SYR IV ONE (07:34)
[2023-11-04] MEDS ORDERED: SUGAMMADEX SODIUM 200 MG/2 ML VIAL IV ONE (09:11)
[2023-11-04] MEDS: TRANEXAMIC ACID 1,000 MG **IV Intra-op IV SCH (09:12)
[2023-11-04] MEDS: BUPIVACAINE/EPINEPHRINE 0.25% 1:200,000 30 ML VIAL ONE (09:22)
[2023-11-04] MEDS ORDERED: KETOROLAC 30 MG/ML VIAL ONE (09:28)
[2023-11-04] MEDS ORDERED: MAGNESIUM HYDROXIDE SUSP 30 ML UDC PO PRN (09:46)
[2023-11-04] MEDS ORDERED: METOCLOPRAMIDE HCL INJ 5 MG/ML 2 ML VIAL IV PRN (09:46)
[2023-11-04] MEDS ORDERED: HYDROmorphone INJ 0.5 MG/0.5 ML SYR IV PRN (09:46)
[2023-11-04] MEDS ORDERED: NALOXONE HCL 0.4 MG/1 ML VIAL/CARP IV PRN (09:46)
[2023-11-04] MEDS ORDERED: bisacodyL 10 MG SUPP PR PRN (09:46)
[2023-11-04] MEDS ORDERED: diphenhydrAMINE Capsule 25 MG CAP PO PRN (09:46)
--- NOTE | 2023-11-04 10:21 | Operative Report ---
PG Post Operative Report Pre & Post Diagnosis Operation Date: 11/04/23 07:15 Pre-Op Diagnosis: Acute hip abductor dysfunction, tear of Right Gluteus Medius Tendon, gluteus minimus and medius atrophy Post-Op Diagnosis: Tear of Right Gluteus Medius Tendon, gluteus minimus and medius atrophy I identified the patient and participated in the time-out.: Yes Procedure Operation Date: 11/04/23 07:15 Actual Procedures p Right Hip Endoscopy (Right) - Alok Handley MD s Open Gluteus Medius and Minimus Tendor Repair with gluteus colt transfer.(Right) - Alok Handley MD Surgeon Alok Handley MD Manager Bridge Rehan Pichardo PA-C Estimated Blood Loss 25 Findings See Below Full-thickness tear of the gluteus medius resulting in exposed trochanteric footprint. The gluteus medius and minimus tissue was atrophied and retracted, prompting the indication for partial gluteus colt transfer to reinforce the direct medius repair. A knotless, linked medial seal, 5 anchor, double row construct was performed using 3 medial row Arthrex knotless RC fiber tacks and 2 Arthrex 5.5 millimeter biocomposite swivel lock anchors, incorporating the gluteus medius and minimus tendon remnant and a portion of the transferred anterior gluteus colt. Specimens None Anesthesia Type General Complications none Disposition Accompanied Patient To Recovery: No Disposition: Recovery Room Indications 77-year-old female developed acute onset of pain when she stumbled last summer. After prolonged course of nonoperative management, she presented for another opinion. Physical exam and advanced imaging were consistent with acute rupture of the gluteus tendon construct with the development of retraction and atrophy. I counseled on treatment options, and given her frustration with the course of symptoms under nonoperative management, I did offer elective gluteal tendon repair with allograft augmentation. She presented today with the intent to proceed. Informed consent was reviewed and confirmed. I reviewed the potential need for gluteus colt transfer if the tissue quality mandates it. All were in agreement to proceed. Informed sent was reviewed and confirmed hip abductor repair. Description of Procedure On the day of surgery, the patient was greeted in the preoperative holding area. The informed consent was reviewed and confirmed by myself and the patient. The patient identified the surgical site and was marked by me. The patient was then turned over to anesthesia. She was taken to the operating room and placed upon the OR table. Anesthesia was induced and the airway was secured. She was then placed in a lateral decubitus position for right hip surgery. Beanbag positioner was used to secure the patient. An axillary roll was placed. All bony prominences were well- padded. Brief timeout to confirm the surgery and laterality was performed before anesthetizing the hip. A total of 60 cc of 0.25% Marcaine with epinephrine were infused to the proposed incision sites and with greater than 30 cc infused underneath the IT band using superficial landmarks and gentle hip abduction from my child development assistant. The right lower extremity was then prepped and draped in the usual sterile fashion for open hip surgery. Surgical timeout was called by the circulating nurse and verified all present. Antibiotics had been infused, and equipment was available and functional. We proceeded with creation of the peritrochanteric proximal portal. Skin incision was made. The arthroscopic trocar was then used to penetrate the gluteal tissue and gain access underneath the IT band along the trochanter which was palpable. The camera was introduced. Inflow allow good elevation of the IT band and visualization of the greater trochanter. There were bands of bursitis and there was obvious retraction of the gluteus minimus and medius tendon from the trochanteric footprint, which was bare. The gluteus colt tissue appeared to be healthy and without insertional lesions distally on the trochanter. Given the degree of tear and retraction, I opted for the open approach. Posterolateral approach incision to the hip was planned out. Incision was carried out. Sharp dissection was carried down through fat with hemostasis achieved with electrocautery. The IT band was cleared of fat by approximately 1 cm in preparation for closure. Full-thickness incision was made down through the IT band and carried to the gluteus fascia. Kobel self-retaining retractor was used here. The anterior portion of the G max construct appeared to be atrophied through the tensor fascia lavern portion. There was atrophy and fat replacement of the TFL musculature. By opening this plane, the greater trochanter was exposed. There was significant enthesiopathy, consistent with chronic gluteal tendon tearing and tendinosis, despite the acute nature of her symptoms. The tear was developed by debriding degenerative tissue, and mobilizing the gluteus medius musculature from the underside of the TFL and gluteus colt. There was also scar and adhesions to the joint capsule, which were freed up. The joint capsule seem to remain intact. The medius had a near full thickness disruption which was mobilized. It did reach the footprint at neutral abduction, but the tissue quality was poor from chronic atrophy. There was also some medius tendon left at the footprint which was nonviable. The minimus was scarred to the anterior edge of medius and seem to mobilize with it. The medius tendon was mobilized on the superficial and deep sides. There sufficient tendon quality to clamp with an Allis clamp and provisionally reduced the tendon over the bare footprint. The muscular quality of the medius and minimus was poor. The tissue was minimally contractile and had fat replacement changes. There was some fascia to capture at the tendon stump which would make the repair possible, but I was concerned about the abduction function left in the medius and minimus. For that reason, I opted for gluteus colt transfer, thereby not needing the allograft tissue. The poor quality of the TFL prompted the modification of the Hooker technique. I took more posterior of the muscle flap from the healthy-appearing anterior edge of the gluteus colt. This is planned marked with a fresh surgical pen. The footprint was prepared using large curette as well as rongeur to remove degenerative fibrous insertional tissue and enthesophytes to reveal bleeding bony bed for repair. Once the bony bed was prepped, the proximal row of our fixation was inserted. This consisted of 3 Arthrex knotless fiber tack RC anchors with the knotless mechanism and fiber tape swedge. A posterior proximal anchor was placed in a similar fashion in the posterior superior aspect of the gluteus footprint. There was excellent purchase for each of these 3 positions. Schetrasion device was used for shuttling the numerous sutures with a Fiberlink. I used a double pass technique. First the length was passed through the minimus and medius tissue, and then routed through a corresponding spot on the transferred gluteus colt portion. Once all 3 positions were passed, we began the medial seal. The medius and minimus repair to this medial seal underneath the transferred G max. The repair stitch was then linked from the anterior to middle position, while the middle repair stitch was linked to the posterior position. The knotless mechanism was then used to reduce the tissue firmly. We alternated tension and brought this tissue down to the trochanter. The posterior repair stitch was then linked to the anterior anchor position in a similar fashion for double medial seal. This repaired the medial edge well and incorporated both the minimus and medius tendon as well as the transfer G-Max. The knotless repair stitches were then cut. FiberLink stitches were placed in the lateral edge of the transferred tendon and a luggage tag formation. I then used a standard suture bridge technique with crossing suture lines from each medial row position to the 2 lateral positions. The lateral positions were drilled for a 5.5 swivel lock followed by tapping. The anterior position did break out so it was repositioned more proximally in the trochanter. This obtained good purchase with a crossing suture bridge construct with lateral edge luggage tag. Both anterior and posterior lateral anchors were placed with firm capture. There was complete coverage of the trochanteric footprint. The transfer G max was adhered well over the kobuk repair. The construct was firm and under minimal tension with abduction, abduction, internal and external rotation. Thorough saline irrigation was carried out of the repair site. Closure began with the IT band. #1 Vicryl suture was used to reapproximate the IT band layers over top the anterior transferred portion from the posterior limb. Interrupted [id number] sutures were used throughout the IT band and TFL/Gmax repair. Irrigation was carried out once more. #1 Vicryl was used to approximate the bursa tissue above the IT band. 0 Vicryl layer was then used in the deep fat and sub-dermal layers. The dermis was approximated using interrupted 2-0 Vicryl suture, followed by olena in the skin. Wound was dressed with sterile Xeroform, plain gauze, ABD, and contained by Ioban dressing. Hip spica Benjamin wrap was then placed for compression. Patient tolerated procedure well, was extubated the operating room without complication, and transferred to the PACU in stable condition. Disposition: The patient will be admitted to observation so that she can work with PT and OT tomorrow to ensure safety for going home. Partial (less than 50%) weightbearing will be mandatory for the first 6 weeks. Crutches and/or walker can be used. DVT prophylaxis will be aspirin therapy on postop day 1. Physical therapy using the [facility] gluteus medius tendon repair protocol can begin at home as planned, immediately postoperative. Routine postop pain medications were prescribed. Physician child development assistant attestation: Nani Mac PA-C was present and scrubbed for the duration of the case. Skilled assistance was essential to prepping/draping, patient positioning, retraction, suture management, and assistance with wound closure. I attest to the content of the Intraoperative Record and any orders documented therein. Any exceptions are noted below.
--- NOTE | 2023-11-04 10:47 | Anesthesiology Progress Note ---
Date of Service November 04, 2023 Anesthesia Post Procedure Vital Signs Vital Signs: Temp Pulse Pulse Resp BP Pulse Ox O2 Del Method 11/04/23 10:40 98.2 F 70 16 144/66 H 94 Room Air 11/04/23 10:30 98.2 F 72 20 139/73 96 Room Air 11/04/23 10:20 98.2 F 73 16 135/66 97 Room Air 11/04/23 10:10 75 25 H 132/74 98 Oxymask 11/04/23 10:00 77 19 146/78 H 97 Oxymask 11/04/23 09:51 97.9 F 78 14 136/71 96 Oxymask 11/04/23 05:48 97.5 F L 75 18 130/70 97 Room Air O2 Flow Rate 11/04/23 10:40 11/04/23 10:30 11/04/23 10:20 11/04/23 10:10 2 11/04/23 10:00 3 11/04/23 09:51 5 11/04/23 05:48 Transfer of Care Handoff Completed per policy Notes Mental Status: alert / awake / arousable and participated in evaluation Patient Amnestic to Procedure: Yes Nausea / Vomiting: adequately controlled Pain: adequately controlled Airway Patency, RR, SpO2: stable & adequate BP & HR: stable & adequate Hydration State: stable & adequate Anesthetic Complications: no major complications apparent and Pt Satisfied with anesthetic care
[2023-11-04] MEDS ORDERED: guaiFENesin 600 MG TABCR PO PRN (11:11)
[2023-11-04] MEDS ORDERED: diphenhydrAMINE HCl 12.5 MG/5 ML UDC PO PRN (11:11)
[2023-11-04] MEDS ORDERED: MELATONIN 3 MG TAB PO PRN (11:11)
[2023-11-04] MEDS ORDERED: LORATADINE 10 MG TAB PO PRN (11:11)
[2023-11-04] MEDS ORDERED: CALCIUM CARBONATE 500 MG CHEWABLE TAB PO PRN (11:38)
[2023-11-04] MEDS: SODIUM CHLORIDE 0.9% 1,000 ML IV SCH (11:39)
[2023-11-04] MEDS ORDERED: ARTIFICIAL TEARS OP PRN (11:56)
[2023-11-04] MEDS: OMEGA-3 (PURIFIED FISH OIL) 1 GM CAP PO SCH (12:24)
[2023-11-04] MEDS: MELOXICAM 7.5 MG TAB PO SCH (15:36)
[2023-11-04] MEDS: ATORVASTATIN 20 MG TAB PO SCH (19:50)
[2023-11-04] MEDS: FAMOTIDINE 40 MG TABLET PO SCH (19:50)
[2023-11-04] MEDS: SENNA 8.6 MG TAB PO SCH (19:50)
[2023-11-04] MEDS: DOCUSATE SODIUM 100 MG CAP PO SCH (19:50)
[2023-11-04] MEDS: ACETAMINOPHEN 1,000 MG/100 ML VIAL IV PRN (19:51)
--- NOTE | 2023-11-05 07:24 | Orthopedic Progress Note ---
Date of Service November 05, 2023 Assessment & Plan (1) Status post hip surgery: - She is doing well at today's check. She is postop day 1 from the surgery above. I did place a discharge order in for her, however she should not be discharged until she works with PT/OT for gait training as she will be partial weightbearing right lower extremity x 6 weeks. -We did discuss aspirin daily for DVT prophylaxis. Her sr. [employer] system administrator did put her on 1 baby aspirin every morning. We would prefer baby aspirin twice daily. -We did also discuss pain medications. She feels she is doing well on Tylenol. She does not feel that she wants oxycodone, therefore we did discuss tramadol. I have sent in tramadol for her as well. -Did discuss wound care. Dressings may be taken out on postop day 3. -She has an appoint with me in 2 weeks. Encouraged her to call with any questions or concerns in the meantime. -Orthopedically stable for discharge once she is evaluated by PT/OT. Subjective Operation Date: 11/04/23 07:15 Actual Procedures p Right Hip Endoscopy (Right) - Alok Handley MD s Open Gluteus Medius and Minimus Tendor Repair with gluteus colt transfer.(Right) - Alok Handley MD Patient is postop day 1 from the surgery above. She is doing well. She is resting comfortably in her hospital bed this morning. States that her pain is controlled with Tylenol this morning. Did discuss with her how the surgery went as well as expectations over the next few weeks. She can be discharged today after PT/OT evaluation. She feels she is doing good at today's visit. States that her pain is under control. Does feel that her right leg is little heavy but no other questions or concerns. Review of Systems All systems reviewed & are unremarkable except as noted in HPI & below. Physical Exam General: Alert and oriented. No acute distress. Right hip: Did not take Benjamin bandage or dressing off as her surgery was yesterday. There is no saturation of the dressing. She has good range of motion of her right knee, foot and ankle. Sensation intact. Distal pulses palpated. Cap refill less than 3 seconds. Psychiatric A+Ox3, euthymic affect Results & Data Results & Data Laboratory Results . Diagnostic Findings . PG Care Time/CCT Total # of Minutes Spent Total Time Spent with Patient: Total time spent is greater than 50% in coordination of care (as documented) at patient's floor/unit and/or counseling patient: Coding Level of Care Code 22747 Post Operative Follow-Up Diagnoses Status post hip surgery Z98.890
[2023-11-05] MEDS: oxyCODONE HCL IR 5 MG TAB (IMMEDIATE RELEASE) PO PRN (07:25)
[2023-11-05] MEDS: MULTIVITAMIN TAB PO SCH (07:26)
[2023-11-05] MEDS: ESCITALOPRAM OXALATE 20 MG TAB PO SCH (07:26)
[2023-11-05] MEDS: ASPIRIN 81 MG ECTAB PO SCH (07:26)
[2023-11-05] MEDS: VALSARTAN 80 MG TAB PO SCH (07:27)
[2023-11-05] MEDS: hydroCHLOROthiazide 25 MG TAB PO SCH (07:27)
--- NOTE | 2023-11-05 07:27 | Discharge Summary ---
Date of Service November 05, 2023 Admission HPI Per Admitting Provider This is a 77-year-old female who Dr. Handley indicated for surgery a few months ago. She was injured in her hip when she fell on the lateral side of her hip last summer. She had immediate pain and difficulty walking. She was treated with physical therapy and symptoms improved slightly with function, but she has had persistent pain. She has been frustrated by the pain and limping associated with this acute injury. She was diagnosed her with a gluteus medius tear. We indicated for surgery, but she has been held up with medical clearances. She wants to proceed with surgery. So, she has had cardiac clearance. Symptoms are likely progressive. She was admitted to the hospital for observation following her right hip endoscopy and open gluteal tendon repair. Admission Exam (Per Admitting) Constitutional WD/WN, vitals as above Musculoskeletal Right Hip: Right hip exam has not changed much. There is some audible and palpable crepitus. Blocking occurs over the greater trochanter. She has a slight Trendelenburg gait. She demonstrates glute weakness with a single leg stance. She is 4+/5 on abduction strength and irritability to range of motion. Discharge Data Procedures Performed Operation Date: 11/04/23 07:15 Actual Procedures p Right Hip Endoscopic(Right) - Alok Handley MD s Open Gluteus tendor Repair, gluteus colt transfer.(Right) - Alok Handley MD Hospital Course (1) Status post hip surgery: - She is doing well at today's check. She is postop day 1 from the surgery above. I did place a discharge order in for her, however she should not be discharged until she works with PT/OT for gait training as she will be partial weightbearing right lower extremity x 6 weeks. -We did discuss aspirin daily for DVT prophylaxis. Her jailor did put her on 1 baby aspirin every morning. We would prefer baby aspirin twice daily. -We did also discuss pain medications. She feels she is doing well on Tylenol. She does not feel that she wants oxycodone, therefore we did discuss tramadol. I have sent in tramadol for her as well. -Did discuss wound care. Dressings may be taken out on postop day 3. -She has an appoint with me in 2 weeks. Encouraged her to call with any questions or concerns in the meantime. -Orthopedically stable for discharge once she is evaluated by PT/OT. Coding Level of Care Code None Diagnoses Status post hip surgery Z98.890
[2023-11-05] MEDS ORDERED: [UNRECOGNIZED DRUG - OTHER] DT SCH (09:00)
[2023-11-05] MEDS ORDERED: VALSARTAN HYDROCHLOROTHIAZIDE PO SCH (09:00)
[2023-11-05] MEDS ORDERED: NON-FORMULARY MEDICATION (Multivitamin tablet) PO SCH (09:00)
== END 2023-11-05 11:32 | disposition home or self-care (01) ==
LOC: ASU 05:01 → 3E 05:01